=== PATIENT | male | born 1985 | race Caucasian/White ===

== ENCOUNTER 2017-09-13 14:16 | Emergency (ER) | payer MEDICAID ==
[~2017-09-13] VITALS: Ht 177.8 cm; Wt 90.5 kg
[~2017-09-13 14:16] MED LIST: PRED10TA PO
[2017-09-13 14:41] VITALS: BP 143/79
[2017-09-13] MEDS ORDERED: PRED10TA23 PO (15:15)
[2017-09-13] MEDS ORDERED: triamcinolone acetonide 40mg/ml inj IM ONE (15:15)
== END 2017-09-13 16:09 | disposition home or self-care (01) ==
LOC: ER 14:17
DX: L23.7 Allergic contact dermatitis due to plants, except food (principal); Z79.899 Other long term (current) drug therapy
CPT/HCPCS: 96372; 99283; J3301

== ENCOUNTER 2017-11-12 14:04 | Emergency (ER) | payer MEDICAID | END 2017-11-12 15:54 | disposition left against medical advice (07) | LOC: ER 14:04 | DX: L23.7 Allergic contact dermatitis due to plants, except food (principal); Z53.21 Procedure and treatment not carried out due to patient leaving prior to being seen by health care provider ==

== ENCOUNTER 2019-04-10 14:44 | Emergency (ER) | payer MEDICAID ==
[~2019-04-10] VITALS: Ht 177.8 cm; Wt 90.0 kg
[2019-04-10 14:54] VITALS: BP 152/96
[2019-04-10] MEDS ORDERED: SULF1TAB49 PO (15:33)
== END 2019-04-10 16:08 | disposition home or self-care (01) ==
LOC: ER 14:45
DX: L02.11 Cutaneous abscess of neck (principal)
CPT/HCPCS: 99283

== ENCOUNTER 2019-07-07 14:22 | Emergency (ER) | payer MEDICAID ==
[~2019-07-07] VITALS: Ht 177.8 cm; Wt 98.7 kg
[~2019-07-07 14:22] MED LIST changes: +LIDOcaine 1% W/epiNEPHrine 1:100,000 20ml vial ONE
[2019-07-07 14:37] VITALS: BP 155/91
[2019-07-07] MEDS ORDERED: CEPH-572 PO (16:24)
[2019-07-07] MEDS ORDERED: SULF1TAB49 PO (16:24)
== END 2019-07-07 16:53 | disposition home or self-care (01) ==
LOC: ER 14:22
DX: L02.414 Cutaneous abscess of left upper limb (principal); Z79.2 Long term (current) use of antibiotics; Z79.899 Other long term (current) drug therapy
CPT/HCPCS: 10060; 99282